=== PATIENT | female | born 1990 | race African-American/Black ===

== ENCOUNTER 2023-02-22 10:51 | Emergency (ER) | payer MEDICAID ==
[~2023-02-22] VITALS: Ht 170.2 cm; Wt 57.2 kg
[2023-02-22 11:01] VITALS: BP 161/107; PULSE 70; RESP 18; TEMP 98.2; O2SAT 99
[2023-02-22] MEDS ORDERED: TETRACAINE 0.5% OPHTH DROPS 4ML LEFTEYE ONE (12:30)
[2023-02-22] MEDS ORDERED: FLUORESCEIN SODIUM 1MG/STRIP LEFTEYE ONE (12:30)
== END 2023-02-22 17:09 | disposition home or self-care (01) ==
LOC: ER 10:51
DX: S05.12XA Contusion of eyeball and orbital tissues, left eye, initial encounter (principal); X58.XXXA Exposure to other specified factors, initial encounter; Y93.89 Activity, other specified; Y92.89 Other specified places as the place of occurrence of the external cause; Y99.8 Other external cause status
CPT/HCPCS: 70486; 81025; 99284